=== PATIENT | female | born 2000 | race African-American/Black ===

== ENCOUNTER → 2022-11-02 | Emergency (ER) | payer SELFPAY ==
[~2022-11-02] VITALS: Ht 162.6 cm; Wt 55.0 kg
[~2022-11-02] MED LIST: BENZ100C86 MT
[2022-11-02 12:34] VITALS: BP 104/55; PULSE 81; RESP 16; TEMP 98.4; O2SAT 97
== END ==
LOC: ER 15:33
DX: J06.9 Acute upper respiratory infection, unspecified (principal); J45.909 Unspecified asthma, uncomplicated
CPT/HCPCS: 99283; Z7610

== ENCOUNTER 2024-01-18 14:20 | Emergency (ER) | payer MEDICAID ==
[~2024-01-18] VITALS: Ht 162.6 cm; Wt 53.0 kg
[2024-01-18 14:30] VITALS: TEMP 98.7; O2SAT 100
[2024-01-18] MEDS ORDERED: ACETAMINOPHEN 325MG TABLET PO ONE (15:15)
[2024-01-18] MEDS: ACETAMINOPHEN 325MG TABLET PO NR (17:45)
[2024-01-18 19:07] VITALS: BP 113/69; PULSE 85; RESP 14; O2SAT 100
== END 2024-01-18 19:08 | disposition home or self-care (01) ==
LOC: ER 14:59
DX: J06.9 Acute upper respiratory infection, unspecified (principal); J45.909 Unspecified asthma, uncomplicated; Z98.890 Other specified postprocedural states; Z20.822 Contact with and (suspected) exposure to COVID-19
CPT/HCPCS: 71045; 81025; 87426; 99284

== ENCOUNTER 2024-08-26 16:03 | Emergency (ER) | payer MEDICAID ==
[~2024-08-26] VITALS: Ht 160 cm; Wt 56.7 kg
[2024-08-26 16:08] VITALS: O2SAT 99
[2024-08-26 16:52] LABS: BASOPHILS % 0.8 % (0.0-2.0); EOSINOPHILS % 0.6 % (0.0-5.0); HEMATOCRIT. 40.5 % (36.0-48.0); HEMOGLOBIN. 13.7 g/dL (12.0-16.0); LYMPHOCYTES % 28.7 % (20.0-50.0); MEAN CORPUSCULAR HEMOGLOBIN 31.5 pg (28.0-32.0); MEAN CORPUSCULAR HGB CONC 33.7 g/dL (31.0-37.0); MEAN CORPUSCULAR VOLUME 93.5 fL (81.0-99.0); MEAN PLATELET VOLUME 7.8 fl (7.4-10.4); MONOCYTES % 7.3 % (2.0-8.0); NEUTROPHILS % 62.6 % (40.0-76.0); PLATELET 274 x1000/uL (130-400); RED BLOOD CELL COUNT 4.34 mill/uL (4.2-5.4); RED CELL DISTRIBUTION WIDTH 12.7 % (11.6-14.6); WHITE BLOOD COUNT 7.1 x1000/uL (4.5-11.0)
[2024-08-26 16:59] LABS: CHLORIDE 102 mEq/L (98-107); POTASSIUM 3.1 mEq/L (3.5-5.1); SODIUM 136 mEq/L (136-145)
[2024-08-26 17:00] LABS: CARBON DIOXIDE 25 mEq/L (21-32)
[2024-08-26 17:01] LABS: CALCIUM 9.2 mg/dL (8.7-10.4)
[2024-08-26 17:05] LABS: CREATININE 0.5 mg/dL (0.6-1.0); GLUCOSE 85 mg/dL (70-105); UREA NITROGEN BLOOD 7 mg/dL (9-23)
[2024-08-26 17:32] LABS: HCG SCREEN POSITIVE
[2024-08-26] MEDS: SODIUM CHLORIDE 0.9% 1,000 ML IV ONE (17:39)
[2024-08-26] MEDS: ONDANSETRON HCL 4MG/2ML INJ IV ONE (17:39)
[2024-08-26] MEDS: POTASSIUM CHLORIDE 20MEQ/PACKET PO ONE (19:24)
[2024-08-26 21:39] LABS: CLARITY URINE CLOUDY (CLEAR); COLOR URINE YELLOW (YELLOW); GLUCOSE URINE NEGATIVE (NEGATIVE); KETONES URINE 4+ (NEGATIVE); LEUKOCYTE ESTERASE URINE NEGATIVE (NEGATIVE); NITRITE URINE NEGATIVE (NEGATIVE); OCCULT BLOOD URINE NEGATIVE (NEGATIVE); PH URINE 7.5 (4.5-8.0); PROTEIN URINE NEGATIVE (NEGATIVE); SPECIFIC GRAVITY URINE 1.021 (1.005-1.030)
[2024-08-26] MEDS ORDERED: ONDA4TAB50 MT (22:13)
[2024-08-26 22:19] LABS: BACTERIA URINE 2+; RBC URINE 0-2 /hpf (0-2); SQUAMOUS EPITHELIAL CELL URINE 2+ /lpf (RARE/1+); WBC URINE 0-2 /hpf (0-2)
[2024-08-26 22:31] VITALS: TEMP 36.6
[2024-08-26 23:17] VITALS: BP 95/50; PULSE 78; RESP 16; O2SAT 100
== END 2024-08-26 23:07 | disposition home or self-care (01) ==
LOC: ER 16:03
DX: O21.1 Hyperemesis gravidarum with metabolic disturbance (principal); O26.891 Other specified pregnancy related conditions, first trimester; Z3A.08 8 weeks gestation of pregnancy
CPT/HCPCS: 99285; 96374; 76801; 96361; 80048; 81003; 84703; 84702; 85025; 36415; J2405; J7030